=== PATIENT | male | born 1985 | race Caucasian/White ===

== ENCOUNTER 2023-07-22 22:09 | Emergency (ER) | payer SELFPAY ==
[~2023-07-22] VITALS: Ht 172.7 cm; Wt 89.0 kg
[2023-07-22 22:25] VITALS: BP 121/67
[2023-07-22] MEDS ORDERED: IPRATROPIUM BROMIDE (0.02%) 0.5MG/2.5ML NEB HHN STA (22:41)
[2023-07-22] MEDS ORDERED: ALBUTEROL (0.083%) 2.5MG/3ML NEB HHN STA (22:41)
[2023-07-22] MEDS ORDERED: PREDNISONE 20MG TABLET PO ONE (22:45)
[2023-07-22] MEDS ORDERED: IPRATROPIUM BROMIDE (0.02%) 0.5MG/2.5ML NEB HHN NR (22:45)
[2023-07-22] MEDS ORDERED: ALBUTEROL (0.5%) 2.5MG/0.5ML NEB HHN NR (22:45)
[2023-07-22 23:10] VITALS: PULSE 74; RESP 18; O2SAT 98
[2023-07-23] MEDS ORDERED: P50 MT (00:16)
[2023-07-23] MEDS ORDERED: ALBU6.7H15 INH (00:16)
[2023-07-23 00:34] VITALS: PULSE 74; RESP 18; TEMP 97.8
== END 2023-07-23 00:35 | disposition home or self-care (01) ==
LOC: ER 22:09
DX: J45.901 Unspecified asthma with (acute) exacerbation (principal)
CPT/HCPCS: 94640; 99285; J7512; Z7610 ×3